=== PATIENT | female | born 1935 | race Asian ===

== ENCOUNTER 2018-01-27 11:10 | Inpatient (IN) | payer MEDICARE, MEDICAID ==
[~2018-01-27] VITALS: Ht 162.6 cm; Wt 42.6 kg
--- NOTE | 2018-01-27 11:20 | NUR ---
FERNANDO FROM [facility] DT DIFFICULTY URINATING. PATIENT IS AWAKE AND ALERT, APPEARS IN NO DISTRESS, RESPIRATION EVEN AND UNALBORED. SKIN IS WARM TO TOUCH, NOTED FEBRILE. PATIENT'VSS. MD SUAZO AT
[2018-01-27] MEDS ORDERED: VANCOMYCIN 1 GM in IV D5W 250 ML IV ONE (11:30)
[2018-01-27] MEDS ORDERED: IV NS 0.9% 500 ML BAG IV ONE (11:30)
[2018-01-27] MEDS ORDERED: MEROPENEM 1 G in IV NS 0.9% 100 ML IV ONE (11:30)
[2018-01-27] MEDS ORDERED: IV NS 0.9% 1,000 ML BAG IV ONE (11:30)
[2018-01-27 11:33] LABS: BASOPHILS # (AUTO) 0.4 /CMM (0.0-0.2); BASOPHILS % (AUTO) 3.1 % (0.0-2.0); HEMATOCRIT 34 % (33-45); LYMPHOCYTES # (AUTO) 1.3 /CMM (0.8-4.8); LYMPHOCYTES % (AUTO) 10.4 % (20.0-44.0); MEAN CORPUSCULAR HGB CONC 35 g/dl (31.0-36.0); MEAN CORPUSCULAR VOLUME 97 fL (82-100); MONOCYTES # (AUTO) 0.7 /CMM (0.1-1.30); MONOCYTES % (AUTO) 5.5 % (2.0-12.0); PLATELET COUNT (AUTO) 225 /CMM (150-450); RDW COEFFICIENT OF VARIATION 13.6 (11.5-15.0); WHITE BLOOD COUNT (AUTO) 12.4 K/uL (4.3-11.0)
--- NOTE | 2018-01-27 11:33 | NUR ---
CALLED NURSING SUP. FOR TELE BED
[2018-01-27 11:43] LABS: CALCIUM, SERUM 8.1 mg/dL (8.5-10.1); CARBON DIOXIDE 30 mmol/L (21-32); CHLORIDE 104 mmol/L (98-107); CREATININE 0.8 mg/dL (0.6-1.3); GLUCOSE 83 mg/dL (74-106); POTASSIUM 3.7 mmol/L (3.5-5.1); SODIUM SERUM 138 mmol/L (136-145); UREA NITROGEN, BLOOD 19 mg/dL (7-18)
[2018-01-27 11:47] LABS: INR 0.96 (0.85-1.15)
[2018-01-27 11:50] LABS: ALANINE AMINOTRANSFERASE 21 U/L (12-78); ALBUMIN 2.8 g/dL (3.4-5.0); ALKALINE PHOSPHATASE 82 U/L (46-116); ASPARTATE AMINOTRANSFERASE 21 U/L (15-37); BILIRUBIN,DIRECT 0.3 mg/dL (0.0-0.2); BILIRUBIN,TOTAL 1.1 mg/dL (0.2-1.0); TOTAL PROTEIN, SERUM 6.5 g/dL (6.4-8.2)
[2018-01-27 11:52] LABS: TROPONIN I < 0.017 ng/mL (0.00-0.056)
[2018-01-27 12:01] LABS: APPEARANCE,URINE Clear (CLEAR); BILIRUBIN,URINE Negative (NEGATIVE); BLOOD, URINE Large Ery/uL (NEGATIVE); COLOR,URINE Yellow (YELLOW); KETONES,URINE Negative (NEGATIVE); LEUKOCYTE ESTERASE ,URINE Trace (NEGATIVE); NITRITE, URINE Negative (NEGATIVE); PH,URINE 6.5 (5.0-8.0); PROTEIN,URINE Negative (NEGATIVE); UGLUCOSE Negative (NEGATIVE); UROBILINOGEN,URINE 0.2 EU/dL (0.2)
--- NOTE | 2018-01-27 12:05 | NUR ---
CALLED DR PEDROZA OFFICE AND A PAGE WAS SENT OUT TO HIM
[2018-01-27 12:13] LABS: BACTERIA,URINE Rare /HPF (None Seen); MUCUS,URINE Few /LPF (None Seen); RBC,URINE 21-50 /HPF (0-2); SQUAMOUS EPITHELIAL CELL,UR Few /HPF (None Seen)
[2018-01-27] MEDS ORDERED: APIX2.5T PO (12:25)
[2018-01-27] MEDS ORDERED: BISA10SU61 RC (12:25)
[2018-01-27] MEDS ORDERED: METO-357 PO (12:25)
[2018-01-27] MEDS ORDERED: SENN-167 PO (12:25)
[2018-01-27] MEDS ORDERED: DOCU250C14 PO (12:25)
[2018-01-27] MEDS ORDERED: MAG30ORA PO (12:25)
[2018-01-27] MEDS ORDERED: ACET325T53 PO (12:25)
[2018-01-27] MEDS ORDERED: AMIO200T4 PO (12:25)
[2018-01-27] MEDS ORDERED: NA P133E RC (12:25)
[2018-01-27] MEDS ORDERED: MAGN400O6 PO (12:25)
[2018-01-27] MEDS ORDERED: PSYL660P17 PO (12:25)
[2018-01-27] MEDS ORDERED: DONE5TAB7 PO (12:25)
[2018-01-27] MEDS ORDERED: AMLO2.5T2 PO (12:25)
[2018-01-27] MEDS ORDERED: NITR0.4T48 SL (12:25)
[2018-01-27] MEDS ORDERED: QUET25TA PO (12:25)
[2018-01-27] MEDS ORDERED: CHOL200026 PO (12:26)
--- NOTE | 2018-01-27 12:45 | NUR ---
MS 322-2, MAULIK.
--- NOTE | 2018-01-27 13:01 | NUR ---
PATIENT TRANSPORTED TO MS. S
[2018-01-27 14:00] VITALS: BP 125/67
--- NOTE | 2018-01-27 14:00 | NUR ---
PT. BROUGHT UP FROM ER,PULLING ON IV LINE,THRASHING ABOUT BED,SIDE RAILS UP.RN GOT ORDERS FOR RESTRAINTS AND PLAN TO GET ORDER FOR SITTER.PT.SPEAKS PERSIAN AND IN WITH SEPSIS.HOOKED UP TO TELE,RHYTHM SR RATE OF65.IV SITE WRAPPED WITH KERLIX.NOTED LRG. BRUISE LT. HIP WITH PLANS TO TAKE PHOTO,PT.REFUSING FURTHER SKIN CHECK AND PULLING ON NURSES ARM.
--- NOTE | 2018-01-27 15:30 | NUR ---
DR. BAUER IN WITH PLANS TO ENTER ORDERS IN COMPUTER.Kari ZURITA FOR PT.
[2018-01-27 16:00] VITALS: BP 124/69
[2018-01-27] MEDS ORDERED: MAG HYDROX/AL HYDROX/SIMETH 30 ML UDC PO PRN (18:00)
[2018-01-27] MEDS ORDERED: NITROGLYCERIN 0.4 MG/TAB BOTTLE SL PRN (18:00)
[2018-01-27] MEDS ORDERED: MAGNESIUM HYDROXIDE 30 ML UDC PO PRN (18:00)
[2018-01-27] MEDS ORDERED: BISACODYL SUPP (10 MG) 10 MG/SUPP.RECT SUPP.RECT RC PRN (18:00)
--- NOTE | 2018-01-27 18:30 | NUR ---
NO CHANGE IN STATUS.
--- NOTE | 2018-01-27 19:15 | NUR ---
TELE/PACKING INSPECTOR; RECEIVED PT'S RE[PORTS FROM THE DAY SHIFT RN FOR CONTINUITY OF CARE. AT THIS TIME PT IN BED AWAKE WITH EYES OPENED BUT NON VERBAL . BREATHING NON LABORED. WITH O2 4L NC ON. HOB AT 45 DEGREES. ON TELEMETRY. HL RFA INTACT WITH KERLIX ON. BED ON LOWER POSITION AND LOCKED FOR SAFETY. SIDE RAILS X 4 ARE UP FOR SAFETY. CALL LIGHT WITHIN REACH. WILL CONTINUE TO MONITOR. SITTER PRESENT FOR THE MARINE RESOURCE ECONOMIST.
[2018-01-27] MEDS: CEFTRIAXONE 1 G in IV D5W 50 ML IV SCH (19:50)
[2018-01-27 19:58] LABS: ALANINE AMINOTRANSFERASE 22 U/L (12-78); ALBUMIN 2.6 g/dL (3.4-5.0); ALKALINE PHOSPHATASE 74 U/L (46-116); ASPARTATE AMINOTRANSFERASE 18 U/L (15-37); BILIRUBIN,TOTAL 1.2 mg/dL (0.2-1.0); CALCIUM, SERUM 7.3 mg/dL (8.5-10.1); CARBON DIOXIDE 26 mmol/L (21-32); CHLORIDE 108 mmol/L (98-107); CREATININE 0.8 mg/dL (0.6-1.3); GLUCOSE 163 mg/dL (74-106); POTASSIUM 3.2 mmol/L (3.5-5.1); SODIUM SERUM 142 mmol/L (136-145); TOTAL PROTEIN, SERUM 5.8 g/dL (6.4-8.2); UREA NITROGEN, BLOOD 14 mg/dL (7-18)
[2018-01-27 20:00] VITALS: BP 121/65
--- NOTE | 2018-01-27 20:50 | NUR ---
TELE/MANAGER OF BUSINESS; CHARGE NURSE NIDIA WAS INFORMED OF THE CMP LABS. RESULTS DRAWN AT 1920, K IS 3.2 AND THE RESTS. SHE SAID CALL DR. Orlando BAUER.
--- NOTE | 2018-01-27 21:00 | NUR ---
TELE/TIME LOCK EXPERT; I PLACED A CALL TO DR. Orlando BAUER'S OFFICE TEL. # [phone] AND LADY ADULT EDUCATION MANAGER SAID FOR [facility] STENCIL TYPIST IS COVERED BY DR. RODRIGO COELLO. I WAS ABLE TO TALK TO HIM TRYING TO RELAY THE CMP LABS. RESULTS DRAWN AT 1920 AND HE SAID I HAVE NO PRIVILEGE IN [facility]. HE SAID FURTHER TO CALL THE ADULT EDUCATION MANAGER BACK WHO IS THE RIGHT DOCTOR STENCIL TYPIST . HE SAID FURTHER IT IS NOT YOUR FAULT.
--- NOTE | 2018-01-27 21:05 | NUR ---
TELE/CAMPAIGN ASSISTANT; I PLACED A CALL BACK TO DR. Orlando BAUER'S OFFICE # [phone] A LADY SECURITY ASSOCIATE ANSWERED SAID DR JEROD REINOSO WHOM IS REGISTERED DIET TECHNICIAN. AT THIS TIME I NOTIFIED DR. JEROD REINOSO AND READ TO HER THE CMP LABS RESULTS DRAWN AT 1920; I TOLD HER NA 142 , K 3.2 , CHLORIDE 108, ANION GAP 11, BUN 14, CREATININE0.8, GLUCOSE 163, CALCIUM7.3 TOTAL BILIRUBIN1.2, AST 18, ALT 22 ALKALINE PHOSPHATASE 74 , TOTAL PROTEIN 5.[address] JEROD REINOSO SAID EVERYTHING IS NORMAL TO ME. SO I INFORMED THE CHARGE NURSE THAT I NOTIFIED DR. JEROD REINOSO AND SAID EVERYTHING IS NORMAL TO HER.
--- NOTE | 2018-01-27 21:45 | NUR ---
TELE/COLLAR POINTER; NOTED PT INCONTINENT OF URINE MODERATE AMOUNT YELLOW COLOR.PT TRYING TO TALKED BUT I UNABLE TO UNDERSTAND . PERINEAL CARE DONE AND DIAPER CHANGED, REPOSITIONED TO LT SIDE WITH PILLOW SUPPORT TO HER BACK.
--- NOTE | 2018-01-27 21:55 | NUR ---
TELE/CINEMA OPERATOR; NOTED PT WITH FACIAL GRIMACES. TYLENOL 650 MG TABS. PO Q6 PRN GIVEN AT 21 59 CRUSHED WITH APPLE SAUCE PT ABLE TO TAKE IT WITH OUT PROBLEM. ASPIRATION PRECAUTION OBSERVED. WILL CONTINUE TO MONITOR,
[2018-01-27] MEDS: ACETAMINOPHEN 325 MG TABLET PO PRN (21:59)
[2018-01-27] MEDS: DONEPEZIL 5 MG TABLET PO SCH (22:06)
[2018-01-27] MEDS: SENNOSIDES 8.6 MG TABLET PO SCH (22:07)
[2018-01-28 01:20] VITALS: BP 123/69
--- NOTE | 2018-01-28 01:30 | NUR ---
TELE/ SLUBBER TENDER; NOTED PT IS INCONTINENT OF URINE YELLOW COLOR LARGE AMOUNT. PERINEAL CARE RENDERED. DIAPER CHANGED. PT TURNED AND REPOSITIONED TO HER LT SIDE WITH PILLOWS SUPPORT TO HER BACK AND LEGS. BOTH HEELS OFFLOADED. PT WENT BACK TO SLEEP AFTER. WILL CONTINUE TO MONITOR. SITTER PRESENT .
--- NOTE | 2018-01-28 03:00 | NUR ---
TELE/MEDICAL EQUIPMENT SALES; PT IN BED SLEEPING QUIETLY. BREATHING NON LABORED. CONTINUE TO MONITOR. SITTER PRESENT IN THE ROOM.
--- NOTE | 2018-01-28 04:00 | NUR ---
TELE/EMBEDDED SOFTWARE MANAGER; PT SLEEPING AT THIS TIME. BREATHING NON LABORED.
--- NOTE | 2018-01-28 04:45 | NUR ---
TELE/VISUAL MANAGER; PT WOKE UP SCREAMING TALKING IN [place]. NON ROMANIAN SPEAKING. UNABLE TO UNDERSTAND HER TALKING. AT THIS TIME PT IS INCONTINENT OF URINE MODERATE AMOUNT YELLOW COLOR. PT IS COMBATIVE. REYNALDO ANAL WASHED WITH SOAP AND WARM WATER, RINSE AND PAT DRY AND DIAPER CHANGED. REPOSITIONED TO HER RT SIDE WITH PILLOWS SUPPORT TO HER BACK AND LEGS.
--- NOTE | 2018-01-28 04:50 | NUR ---
TELE/BACON SKINNER; PT POINTING HER LT HAND TO HER PERINEAL AREA ? PAIN. SHE PULLED OUT HER O2 AND TELEMETRY BOX.
[2018-01-28] MEDS: ACETAMINOPHEN 325 MG TABLET PO PRN (04:53)
--- NOTE | 2018-01-28 04:55 | NUR ---
TELE/SENIOR PRODUCT ANALYST; TYLENOL 650 MG TABS. PO Q6 PRN CRUSHED AND MIXED WITH APPLE SAUCE PT ABLE TO TAKE IT WITHOUT PROBLEM. ASPIRATION PRECAUTION WAS OBSERVED.
--- NOTE | 2018-01-28 05:00 | NUR ---
TELE/HYDRO GENERATION SUPERVISOR; PT DID NOT HAVE BILATERAL SOFT WRIST RESTRAINT SINCE I RECEIVED LAST NIGHT PT WAS CALM , QUIET AND SLEEPING. AT THIS TIME I RESUMED IT ORDERED DUE TO PT VERY AGITATED , COMBATIVE AND REMOVING O2 CANNULA, TELEMETRY BOX AND TRYING TO PULL OUT THE IV LINE. ONCE PT CALM DOWN I WILL RELEASE IT.
--- NOTE | 2018-01-28 05:10 | NUR ---
TELE/REGISTERED ROUTE ASSOCIATE; PT BADLY REFUSED VITAL SIGNS TO BE TAKEN. PER HAND DRAWER IN HELPER PT ON SR 70. I INFORMED CHARGE NURSE REGARDING PT SCREAMING AGITATED AND COMBATIVE. I PLACED A CALL TO HER DAUGHTER -IN -[place] IN [place] # [phone] PHONE KEPT RINGING NO ANSWER. I LEFT MESSAGE TO RETURN MY CALL IN ORDER FOR HER TO TALK TO THE PT. AWAITING.
--- NOTE | 2018-01-28 05:45 | NUR ---
TELE/CHASER TAR; PT AT THIS TIME STILL AWAKE AND CALM AND QUIET. PT WHEEZING WHEN SHE WAS VERY AGITATED . O2 RE APPLIED.
--- NOTE | 2018-01-28 06:30 | NUR ---
TELE /CREDIT COMPLIANCE OFFICER; PT REFUSED MORNING BATH. APPEARED BIT CALM AND QUIET. WILL CONTINUE TO MONITOR.HL, O2 AND IV LINE INTACT. WILL CONTINUE TO MONITOR. SITTER PRESENT AT ALL TIMES. WILL ENDORSE TO THE DAY SHIFT NURSE.
--- NOTE | 2018-01-28 06:45 | NUR ---
TELE/CIGAR HEAD HOLER; PT AT THIS TIME CALM , QUIET AND SLEEPING. BILATERAL SOFT WRIST RESTRAINTS ARE REMOVED. O2 IV LINE AND TELEMETRY BOX IN PLACED. WILL CONTINUE TO MONITOR. WILL ENDORSE TO THE DAY SHIFT NURSE FOR CONTINUITY OF CARE.
--- NOTE | 2018-01-28 06:54 | NUR ---
TELE/TANKAGE GRINDER; PT HAS ALSO BRUISE ON HER LT ARM WHEN RECEIVED LAST NIGHT.
--- NOTE | 2018-01-28 07:10 | NUR ---
RN NOTES PT IS LAYING DOWN IN BED, RESTING COMFORTABLY. PT ON 4L O2, RESPIRATIONS ARE EVEN AND UNLABORED. IV ON RAC INTACT AND SL. SAFETY MEASURES ARE IN PLACE AND SITTER IS AT BEDSIDE. WILL CONTINUE TO MONITOR.
[2018-01-28 08:00] VITALS: BP 126/77
[2018-01-28] MEDS: AMLODIPINE BESYLATE 2.5 MG TABLET PO SCH (08:20)
[2018-01-28] MEDS: QUETIAPINE FUMARATE 25 MG TABLET PO SCH (08:20)
[2018-01-28] MEDS: METOPROLOL SUCCINATE 50 MG TAB.SR.24H PO SCH (08:20)
[2018-01-28] MEDS: AMIODARONE HCL 200 MG TABLET PO SCH (08:20)
[2018-01-28 08:40] LABS: BASOPHILS % (AUTO) 0.1 % (0.0-2.0); EOSINOPHILS % (AUTO) 0.5 % (0.0-6.0); HEMATOCRIT 34 % (33-45); HEMOGLOBIN 11.4 g/dL (11.5-14.8); LYMPHOCYTES # (AUTO) 1.2 /CMM (0.8-4.8); LYMPHOCYTES % (AUTO) 9.8 % (20.0-44.0); MEAN CORPUSCULAR HGB CONC 34 g/dl (31.0-36.0); MEAN CORPUSCULAR VOLUME 98 fL (82-100); MONOCYTES # (AUTO) 0.5 /CMM (0.1-1.30); MONOCYTES % (AUTO) 3.8 % (2.0-12.0); NEUTROPHILS # (AUTO) 10.4 /CMM (1.8-8.9); NEUTROPHILS % (AUTO) 85.8 % (43.0-81.0); PLATELET COUNT (AUTO) 224 /CMM (150-450); RDW COEFFICIENT OF VARIATION 13.5 (11.5-15.0); RED BLOOD CELL COUNT(AUTO) 3.42 MIL/uL (4.0-5.2); WHITE BLOOD COUNT (AUTO) 12.2 K/uL (4.3-11.0)
[2018-01-28] MEDS: APIXABAN 2.5 MG TABLET PO SCH ×2 (09:11→17:09)
--- NOTE | 2018-01-28 13:00 | NUR ---
RN NOTES PT IS VERY COMBATIVE AND YELLING. PT VOICES PARANOID THOUGHTS ABOUT STAFF TRYING TO KILL HER. PT TRIES TO GRAB AND HIT RN AND SITTER.
[2018-01-28 16:00] VITALS: BP 131/77
[2018-01-28] MEDS: CEFTRIAXONE 1 G in IV D5W 50 ML IV SCH (17:31)
[2018-01-28] MEDS ORDERED: ALBUTEROL FS 2.5 MG/0.5 ML VIAL.NEB NEB PRN (18:00)
--- NOTE | 2018-01-28 18:32 | NUR ---
RN NOTES PT IS LAYING DOWN IN BED, ALERT BUT CONFUSED, WITH SITTER AT BEDSIDE. PT ON RA, RESPIRATIONS ARE EVEN AND UNLABORED. IV ON LFA INTACT AND SL. ALL MEDS WERE GIVEN ORDERED AND PT NEEDS MET. PT KEPT CLEAN AND DRY, REPOSITIONED Q2HRS. NO SIGNS OF DISTRESS NOTED. SAFETY MEASURES ARE IN PLACE, CALL LIGHT IS IN REACH. WILL ENDORSE TO BUSINESS CONTROL MANAGER RN FOR CONTINUITY OF CARE.
--- NOTE | 2018-01-28 19:15 | NUR ---
MS/FISHER PURSE SEINE; RECEIVED PT'S REPORTS FROM THE DAY SHIFT RN FOR CONTINUITY OF CARE. AT THIS TIME PT IS IN BED AWAKE, ALERT AND VERBALLY RESPONSIVE IN LATVIAN SPEAKING. DAY SHIFT SITTER PRESENT. PT DENIES ANY PAIN WHEN ASKED BY THE DAY SHIFT LATVIAN SITTER . PT ON ROOM AIR. BREATHING NON LABORED. NO COUGHING NOR WHEEZING AT THIS TIME. HL ON RAC COVERED SLEEVE INTACT. PT ON DIAPER. BRUISE STILL OBSERVED ON RA AND LT HIP. BED ON LOWER POSITION AND LOCKED FOR SAFETY. SIDE RAILS X 4 ARE UP FOR SAFETY. NIGHT SITTER NOW PRESENT. WILL CONTINUE TO MONITOR.
[2018-01-28 20:35] VITALS: BP 143/80
[2018-01-28] MEDS: DONEPEZIL 5 MG TABLET PO SCH (21:49)
[2018-01-28] MEDS: SENNOSIDES 8.6 MG TABLET PO SCH (21:51)
--- NOTE | 2018-01-28 22:00 | NUR ---
MS/INTERNAL AFFAIRS INVESTIGATOR; NOTED PT IS INCONTINENT OF URINE LARGE AMOUNT YELLOW COLOR. PERINEAL /ANAL AREA WASHED WITH SOAP AND WARM WATER AND KEEP IT DRY. DIAPER CHANGED . TURNED AND REPOSITIONED HER RT SIDE WITH PILLOWS SUPPORT HER BACK AND LEGS. DUE PO MEDS. CRUSHED AN D MIXED WIT APPLE SAUCE ALL TAKEN AND DRUNK APPLE JUICE. ASPIRATION PRECAUTION OBSERVED. WILL CONTINUE TO MONITOR.
--- NOTE | 2018-01-28 22:55 | NUR ---
MS/CHIEF NURSE ANESTHETIST; WHEN I CHECKED THE LAB. RESULT I NOTED PT'S PROCALCITONIN RESULT IS 3.96 H . I INFORMED THE CHARGE NURSE.
--- NOTE | 2018-01-28 23:05 | NUR ---
MS/MACHINIST MECHANIC; PT SLEEPING AT THIS TIME. BREATHING NON LABORED.
--- NOTE | 2018-01-28 23:30 | NUR ---
MS/STERILE PROCESSING TECHNICIAN; PT WOKE UP TALKING I UNABLE TO UNDERSTAND. I REQUESTED SANJU CORONADO GERMAN SPEAKING TO TALK TO THE PT. SHE DID TALK TO THE PT , PT DENIES ANY PAIN. PT WANTS TO EAT SHE IS HUNGRY AND SAID SHE DID NOT EAT HER DINNER. PT ON PRECAUTION PRECAUTION OBSERVED. I GAVE PT VANILLA PUDDING AND SHE EAT HALF OF THE VANILLA PUDDING CUP. DRUNK SOME APPLE JUICE.
--- NOTE | 2018-01-28 23:50 | NUR ---
MS/BELT BUILDER HELPER; PT REPOSITIONED. NOTED SOME COUGHING AND WHEEZING. PT REFUSED O2 ON. I CALLED MAYDA GONZALEZ FOR PT'S BREATHING TREATMENTS ROUTINELY ORDERED. HE CAME CHECKED O2 SAT ON RA 91 %.
[2018-01-28] MEDS: ALBUTEROL FS 2.5 MG/0.5 ML VIAL.NEB NEB SCH (23:54)
--- NOTE | 2018-01-29 | NUR ---
MS/BORING MACHINE SET UP OPERATOR; RT GAVE BREATHING TREATMENT.
--- NOTE | 2018-01-29 00:15 | NUR ---
MS/CHIEF LIBRARIAN WORK WITH BLIND; BREATHING TREATMENT DONE. O2 SAT ON RA CHECKED BY RT 99 %. RT PUT BACK O2 ON 2L NC.
--- NOTE | 2018-01-29 01:15 | NUR ---
MS/GROCERY CLERK MARKING; PT STILL AWAKE AT THIS TIME CONFUSED AGITATED . REPOSITIONED. PT REFUSED TO TAKE TYLENOL FOR DISCOMFORT.
[2018-01-29] MEDS: ACETAMINOPHEN 325 MG TABLET PO PRN ×2 (01:18→12:29)
--- NOTE | 2018-01-29 01:45 | NUR ---
MS/ALLERGY AND IMMUNOLOGY SPECIALIST; NOTEDE PT IS INCONTINENT OF URINE MODERATE AMOUNT YELLOW COLOR. PERINEAL CARE DONE. DIAPER CHANGED. REPOSITIONED FOR COMFORT. WILL CONTINUE TO MONITOR.
--- NOTE | 2018-01-29 02:55 | NUR ---
MS/BISCUIT PACKER; CHARGE NURSE , NIDIA IN AND CHECKED THE PT. AT THIS TIME PT STILL SCREAMING , IN TAJIK WORDS. VERY CONFUSED AND SCRATCHING THE STAFF. REPOSITIONED.
[2018-01-29] MEDS: ALBUTEROL FS 2.5 MG/0.5 ML VIAL.NEB NEB SCH ×6 (03:29→23:19)
--- NOTE | 2018-01-29 03:30 | NUR ---
MS/VETERINARIAN LABORATORY ANIMAL CARE; RT CAME CHECKED PT'S O2 SAT ON RA 95 %. NO HHN GIVEN DUE TO PT AGITATED. PT WAS REPOSITIONED . REFUSED O2 .
--- NOTE | 2018-01-29 03:35 | NUR ---
MS/CONDUIT HELPER; I DID REQUEST IVONNE RN WHO SPEAKS CHINESE TO TALK TO THE PT WHAT PT WANTS. THE RN, SAID PT IS JUST VERY CONFUSED. CONTINUE TO MONITOR.
--- NOTE | 2018-01-29 04:00 | NUR ---
MS/BIOASSAYIST; PT REMOVED HER DIAPER AND GIVEN TO ME AND NOTED IT 'S OF URINE. PT ABLE TO ALLOW ME TO CHANGE HER DIAPER. REPOSITIONED.
--- NOTE | 2018-01-29 04:15 | NUR ---
MS/METAL ROOM DENTAL TECHNICIAN; NOTED AT THIS TIME PT CALM AND QUIET BUT AWAKE WITH EYES ARE OPENED.
--- NOTE | 2018-01-29 06:34 | NUR ---
MS/AIR CONDITIONER INSTALLER HELPER; PT SLEPT ONLY FOR SHORT INTERVALS. AWAKE, ALERT, VERY CONFUSED TRYING TO PUT HER LEGS ON TOP OF THE BED SIDE RAILS. PT REFUSED BED BATH. NOT USING O2 AT THIS TIME REFUSING. HL ON THE RAC INTACT. WILL CONTINUE TO MONITOR. SITTER PRESENT IN THE ROOM AT ALL TIMES. APPEARED QUIET AND CALM AT THIS TIME. WILL ENDORSE TO THE D AY SHIFT NURSE FOR CONTINUITY OF CARE.
--- NOTE | 2018-01-29 07:30 | NUR ---
RN MS NOTES PT IN BED, AWAKE, NO SIGN OF PAIN, NO FACIAL GRIMACING, RESPIRATIONS NORMAL, AZERI SPEAKING, SAFETY PRECAUTIONS OBSERVED, SITTER AT BEDSIDE, CALL LIGHT WITHIN REACH.
[2018-01-29] MEDS: APIXABAN 2.5 MG TABLET PO SCH ×2 (08:26→17:27)
[2018-01-29] MEDS: AMLODIPINE BESYLATE 2.5 MG TABLET PO SCH (08:27)
[2018-01-29] MEDS: AMIODARONE HCL 200 MG TABLET PO SCH (08:27)
[2018-01-29] MEDS: QUETIAPINE FUMARATE 25 MG TABLET PO SCH (08:27)
[2018-01-29] MEDS: METOPROLOL SUCCINATE 50 MG TAB.SR.24H PO SCH (08:28)
--- NOTE | 2018-01-29 11:00 | NUR ---
RN MS NOTES PT IN BED, AWAKE, NO SIGN OF PAIN OR DISCOMFORT, NO FACIAL GRIMACING OR MOANNG, NO GUARDING MOVEMENT NOTED, RESPIRATIONS NORMAL, PT TRYING TO PUT HER LEGS OVER THE BED RAILING, SITER AT BEDSIDE, REPOSITIONED FOR COMFORT, SAFETY PRECAUTIONS OBSERVED.
--- NOTE | 2018-01-29 13:00 | NUR ---
RN MS NOTES PT IN BED, AWAKE, NO SIGN OF PAIN OR DISCOMFORT, BREATHING PATTERN NORMAL, SITTER AT BEDSIDE, ASSISTED TO BATHROOM NEEDED, BREATHING TREATMENT GIVEN BY RT ORDERED, KEPT CLEAN AND DRY.
[2018-01-29 16:00] VITALS: BP 104/58
[2018-01-29] MEDS: CEFTRIAXONE 1 G in IV D5W 50 ML IV SCH (17:31)
--- NOTE | 2018-01-29 19:00 | NUR ---
RN MS NOTES PT IN BED, RESTING, EASY TO AROUSE, WITH CONFUSION, PM MEDS GIVEN ORDERED, ASSISTED WITH MEALS, SAFETY PRECAUTIONS OBSERVED, KEPT CLEAN AND DRY, TURNED AND REPOSITIONED Q2 HOURS, KEPT COMFORTABLE.
--- NOTE | 2018-01-29 19:25 | NUR ---
MS/RN NOTES RECEIVED PT. LYING IN BED. PT. IS AWAKE, ALERT AND ORIENTED TO SELF WITH PERIODS OF CONFUSION NOTED. BREATHING EVEN AND UNLABORED ON ROOM AIR. NO SOB, RESPIRATORY DISTRESS OR COMPLAINTS OF PAIN NOTED AT THIS TIME. PT. WITH LEFT ARM 22 GAUGE IV SALINE LOCK PRESENT, PATENT AND INTACT. BED LOCKED AND IN LOWEST POSITION, SIDE RAILS UP X3, BED ALARM ON. PT. WITH 1:1 SITTER PRESENT AT BEDSIDE. WILL CONTINUE TO MONITOR.
[2018-01-29 20:00] VITALS: BP 129/59
[2018-01-29] MEDS: SENNOSIDES 8.6 MG TABLET PO SCH (21:54)
[2018-01-29] MEDS: DONEPEZIL 5 MG TABLET PO SCH (21:54)
--- NOTE | 2018-01-30 02:15 | NUR ---
MS/RN NOTES GAVE REPORT AND ENDORSED PT. TO SANJU MILTON. PT. IS LYING IN BED RESTING. BREATHING EVEN AND UNLABORED ON ROOM AIR. NO SOB, RESPIRATORY DISTRESS OR COMPLAINTS OF PAIN NOTED AT THIS TIME. PT. WITH 1:1 SITTER PRESENT AT BEDSIDE.
[2018-01-30] MEDS: ALBUTEROL FS 2.5 MG/0.5 ML VIAL.NEB NEB SCH ×6 (02:52→22:53)
--- NOTE | 2018-01-30 07:10 | NUR ---
REPORT RECEIVED AT THE BEDSIDE. PATIENT IS RESTING COMFORTABLY IN BED. NO SOB OR DISTRESS NOTED AT THIS TIME. PATIENT DENIES PAIN. BED IN A LOW POSITION, SITTER IS AT THE BEDSIDE. WILL MONITOR.
--- NOTE | 2018-01-30 07:27 | NUR ---
MS RN NOTE PATIENT IS RESTING IN BED COMFORTABLY, NO ACUTE DISTRESS NOTED. SAFETY PRECAUTION OBSERVED. ENDORSED TO DAY SHIFT NURSE FOR VICENTE.
[2018-01-30 08:00] VITALS: BP 153/90
[2018-01-30] MEDS: POTASSIUM CHLORIDE 20 MEQ TAB.PRT.SR PO SCH (08:10)
[2018-01-30] MEDS: METOPROLOL SUCCINATE 50 MG TAB.SR.24H PO SCH (08:10)
[2018-01-30] MEDS: AMIODARONE HCL 200 MG TABLET PO SCH (08:10)
[2018-01-30] MEDS: APIXABAN 2.5 MG TABLET PO SCH ×2 (08:11→17:32)
[2018-01-30] MEDS: QUETIAPINE FUMARATE 25 MG TABLET PO SCH (08:11)
[2018-01-30] MEDS: AMLODIPINE BESYLATE 2.5 MG TABLET PO SCH (08:11)
[2018-01-30 16:00] VITALS: BP 142/82
[2018-01-30] MEDS: CEFTRIAXONE 1 G in IV D5W 50 ML IV SCH (17:32)
--- NOTE | 2018-01-30 19:10 | NUR ---
RN OPENING NOTES PT AWAKE AND RESTING IN BED. 1:1 SITTER AT BEDSIDE. PT IS CONFUSED AND UPPER SORBIAN SPEAKER. PT HAS A LEFT UPPER ARM IV, INTACT AND PATENT. NO FLUIDS AT THIS TIME. NO NEW ORDERS OR LABS ORDERED FOR TOMORROW. SAFETY PRECAUTIONS IN PLACE BED IN LOWEST LOCKED POSITION, X3 SIDE RAILS UP. CALL LIGHT WITHIN REACH. WILL CONTINUE TO MONITOR.
[2018-01-30 20:00] VITALS: BP 137/75
[2018-01-30] MEDS: SENNOSIDES 8.6 MG TABLET PO SCH (22:10)
[2018-01-30] MEDS: DONEPEZIL 5 MG TABLET PO SCH (22:10)
[2018-01-31] MEDS: ALBUTEROL FS 2.5 MG/0.5 ML VIAL.NEB NEB SCH ×6 (02:42→22:52)
--- NOTE | 2018-01-31 06:51 | NUR ---
RN CLOSING NOTES PT AWAKE AND RESTING IN BED. 1:1 SITTER AT BEDSIDE. PT IS CONFUSED AND URDU SPEAKER. PT HAS A LEFT UPPER ARM IV, INTACT AND PATENT. NO FLUIDS AT THIS TIME. NO NEW ORDERS OR LABS ORDERED FOR TODAY. SAFETY PRECAUTIONS IN PLACE BED IN LOWEST LOCKED POSITION, X3 SIDE RAILS UP. CALL LIGHT WITHIN REACH. WILL ENDORSE TO DAY SHIFT NURSE FOR CONTINUITY OF CARE.
--- NOTE | 2018-01-31 07:21 | NUR ---
RN OPENING NOTES RECEIVED PT. PT STABLE AND RESTING IN BED, SITTER AT BEDSIDE. NO S/S OF RESP DISTRESS OR SOB. A/OX1, PT IS CONFUSED. SAFETY MEASURES IN PLACE, CALL LIGHT WITHIN REACH. WILL CONTINUE TO MONITOR.
[2018-01-31] MEDS: POTASSIUM CHLORIDE 20 MEQ TAB.PRT.SR PO SCH (08:17)
[2018-01-31] MEDS: QUETIAPINE FUMARATE 25 MG TABLET PO SCH (08:17)
[2018-01-31] MEDS: APIXABAN 2.5 MG TABLET PO SCH ×2 (08:21→17:28)
[2018-01-31] MEDS: AMIODARONE HCL 200 MG TABLET PO SCH ×2 (09:00→12:16)
[2018-01-31] MEDS: AMLODIPINE BESYLATE 2.5 MG TABLET PO SCH ×2 (09:00→12:17)
[2018-01-31] MEDS: METOPROLOL SUCCINATE 50 MG TAB.SR.24H PO SCH (09:00)
--- NOTE | 2018-01-31 09:02 | NUR ---
RN NOTES PT REFUSING TO HAVE VITAL SIGNS TAKEN AND ALL AM MEDICATIONS. APPEARS TO BECOME MORE ANXIOUS ENCOURAGEMENT FOR COMPLIANCE IS PROVIDED. ANTI-HYPERTENSIVE MEDICATIONS HELD FOR NOW, WILL F/U WITH PT.
--- NOTE | 2018-01-31 10:44 | NUR ---
RN NOTES PT CONTINUES TO REFUSE MEDS AND VITAL SIGNS. PT APPEARS STABLE, BREATHING UNLABORED, DOES NOT APPEAR TO BE IN PAIN OR DISTRESS. WILL CONTINUE TO ENCOURAGE PT FOR COMPLIANCE AND CONTINUE TO MONITOR.
[2018-01-31] MEDS: ACETAMINOPHEN 325 MG TABLET PO PRN (14:41)
[2018-01-31] MEDS: CEFTRIAXONE 1 G in IV D5W 50 ML IV SCH (18:36)
--- NOTE | 2018-01-31 19:22 | NUR ---
PT IS REFUSING BREATHING TREATMENT AT THIS TIME. PT IS VERY AGITATED. RN NOTIFIED.
--- NOTE | 2018-01-31 19:29 | NUR ---
RN CLOSING NOTE PT IN BED RESTING. ALL PT NEEDS ANTICIPATED AND MET. SAFETY MEASURES IN PLACE. CALL LIGHT IN REACH. WILL ENDORSE TO STEAK SAUCE MAKER FOR VICENTE.
--- NOTE | 2018-01-31 19:30 | NUR ---
MS RN OPENING NOTES: RECEIVED PT IN BED AND IS AWAKE WITH ROCEPHIN IV RUNNING. PT CONFUSED AND IS ONLY BULGARIAN SPEAKING AND UNDERSTANDING ONLY. PT APPEARS TO BE AGITATED. CALL LIGHT WITHIN PT'S REACH. BED ALARM ACTIVATED. BED KEPT IN LOW, LOCKED POSITION, AND SIDE RAILS X 2UP. WILL CONTINUE TO MONITOR PT.
--- NOTE | 2018-01-31 19:43 | NUR ---
MS RN NOTES: PT REFUSING BREATHING TREATMENT. PT REFUSING TO HAVE HER VITALS TAKEN.
[2018-01-31 20:00] VITALS: BP 153/79
[2018-01-31 22:00] VITALS: BP 153/79
[2018-01-31] MEDS: DONEPEZIL 5 MG TABLET PO SCH (22:11)
[2018-01-31] MEDS: SENNOSIDES 8.6 MG TABLET PO SCH (22:11)
--- NOTE | 2018-01-31 22:15 | NUR ---
MS RN NOTES: ATTEMPTED TO GIVE SENOKOT AND ARICEPT TO PT. PT REFUSED AND MADE GESTURES THAT SHE WANTED TO BE LEFT ALONE. WAS ACCOMPANIED WITH BENGALI CABIN OUTFITTER AND PT SAID SHE DOES NOT WANT MEDS EVEN AFTER EXPLAINING WHAT IT WAS FOR.
[2018-02-01] MEDS: ALBUTEROL FS 2.5 MG/0.5 ML VIAL.NEB NEB SCH ×4 (02:34→15:30)
--- NOTE | 2018-02-01 06:42 | NUR ---
MS RN CLOSING NOTES: ALL NEEDS WERE ATTENDED AND ANTICIPATED FOR. PT ON ROOM AIR AT THIS TIME PT KEEPS REMOVING N/C. NO S/S OF DISTRESS NOTED AT THIS TIME. PT IS A/OX1 AND IS LUXEMBOURGISH SPEAKING ONLY. PT STILL CONFUSED. PT HAS L UPPER ARM #22G AND IS PATENT AND INTACT. PT CURRENTLY S/L. CALL LIGHT WITHIN PT'S REACH. BED KEPT IN LOW, LOCKED POSITION, AND SIDE RAILS X 3 UP. BED ALARM ACTIVATED. WILL ENDORSE TO AM NURSE FOR VICENTE.
--- NOTE | 2018-02-01 07:15 | NUR ---
MS/RN OPENING NOTE PATIENT IS RECEIVED IN BED AWAKE. ALERT AND ORIENTED TO SELF. PATIENT IS CONFUSED, FORGETFUL. REDIRECTION AND REORIENTATION PROVIDED. VERBAL CUES PROVIDED TO INCREASE SAFETY AWARENESS. PATIENT REMOVES NASAL CANNULA AND THE OXYGEN SATURATION IS AT FLUCTUATES 89-90% IN ROOM AIR. PATIENT IS ENCOURAGED TO KEEP THE NASAL CANNULA IN ORDER TO INCREASE OXYGEN SATURATION LEVEL, HOWEVER, THE PATIENT NON-COMPLIANT. PATIENT INCONTINENT. ABDOMEN SOFT AND NON-DISTENDED. NO BLADDER DISTENSION NOTED. LEFT UPPER ARM G 22 PATENT AND SALINE LOCKED. SIDE RAILS UP X3. BED LOW AND LOCKED. BED ALARM ON AND SITTER BY THE BEDSIDE. CALL LIGHT WITHIN REACH. WILL CONTINUE TO MONITOR.
[2018-02-01 08:00] VITALS: BP 144/81
[2018-02-01 08:32] VITALS: BP 144/81
[2018-02-01] MEDS: AMLODIPINE BESYLATE 2.5 MG TABLET PO SCH (08:32)
[2018-02-01] MEDS: METOPROLOL SUCCINATE 50 MG TAB.SR.24H PO SCH (08:32)
[2018-02-01] MEDS: POTASSIUM CHLORIDE 20 MEQ TAB.PRT.SR PO SCH (08:32)
[2018-02-01] MEDS: AMIODARONE HCL 200 MG TABLET PO SCH (08:32)
[2018-02-01] MEDS: QUETIAPINE FUMARATE 25 MG TABLET PO SCH (08:33)
[2018-02-01] MEDS: APIXABAN 2.5 MG TABLET PO SCH (10:04)
--- NOTE | 2018-02-01 10:05 | NUR ---
MS/RN NOTE ELIQUIS WAS ADMINISTERED LATE DUE TO PHARM DELIVERED IT LATE DESPITE FOLLOW UP CALL X2 WERE MADE.
[2018-02-01] MEDS: ACETAMINOPHEN 325 MG TABLET PO PRN (10:14)
--- NOTE | 2018-02-01 10:14 | NUR ---
MS/RN NOTE PATIENT WITH GENERALIZED BODY PAIN 11/28. TYLENOL 650 MG PO GIVEN PER ORDER.
--- NOTE | 2018-02-01 11:15 | NUR ---
MS/RN NOTE PATIENT IS ASSESSED AND NOTED PAIN LEVEL 0/10. PATIENT IN NO APPARENT DISTRESS.
--- NOTE | 2018-02-01 17:36 | NUR ---
MS/RN CLOSING NOTE PATIENET ALERT AND ORIENTED X1. DENIES SOB. RESPIRATION REGULAR AND UNLABORED. DENIES PAIN. DISCHARGE INSTRUCTIONS PROVIDED. REPORT GIVEN TO RECEIVING NURSE CRUZITO. DISHCRAGE PAPERS SENT WITH THE PATIENT TO THE FACILITY. PATIENT LEFT THE HOSPITAL IN STABLE CONDITION VIA ARRANGED AMBULANCE.
== END 2018-02-01 17:37 | DRG 871 ==
LOC: EDBD → ER 11:15 → MED 12:57 → TELE 21:34 → MED 01-28 08:30
PROVIDERS: ADMIT Internal Medicine; ATTEND Internal Medicine
DX: A41.9 Sepsis, unspecified organism (principal); J18.9 Pneumonia, unspecified organism; G93.40 Encephalopathy, unspecified; I48.0 Paroxysmal atrial fibrillation; R64 Cachexia; G30.9 Alzheimer's disease, unspecified; D63.8 Anemia in other chronic diseases classified elsewhere; F02.80 Dementia in other diseases classified elsewhere, unspecified severity, without behavioral disturbance, psychotic disturbance, mood disturbance, and anxiety; N39.0 Urinary tract infection, site not specified; J40 Bronchitis, not specified as acute or chronic; I10 Essential (primary) hypertension; Z79.899 Other long term (current) drug therapy; Z79.01 Long term (current) use of anticoagulants; E67.3 Hypervitaminosis D; Z91.81 History of falling; Y95 Nosocomial condition; Z66 Do not resuscitate; R73.9 Hyperglycemia, unspecified; F43.9 Reaction to severe stress, unspecified
CPT/HCPCS: 36415; 71045-TC; 80048-TC; 80053-TC; 80076-TC; 81000-TC; 83605-TC; 84484-TC; 85025-TC; 85730-TC; 87040-TC; 87081-TC; 87086-TC; 92611-TC; 94799-TC; 97116-TC; 97530-TC; A4216; A4606; J0696; J2185; J3370; J7030; J7040; J7060; Z7610

== ENCOUNTER 2018-02-16 18:25 | Inpatient (IN) | payer MEDICARE, MEDICAID ==
[~2018-02-16] VITALS: Ht 157.5 cm; Wt 36.1 kg
[~2018-02-16 18:25] MED LIST: ACET325T53 PO; AMIO200T4 PO; AMLO2.5T2 PO; APIX2.5T PO; BISA10SU61 RC; CHOL200026 PO; DOCU250C14 PO; DONE5TAB7 PO; MAG30ORA PO; MAGN400O6 PO; METO-357 PO; NA P133E RC; NITR0.4T48 SL; PSYL660P17 PO; QUET25TA PO; SENN-167 PO
--- NOTE | 2018-02-16 20:00 | NUR ---
82 YO FEMALE BB AMBULANCE FROM SNF. PATIENT DS TO ER BED, SKINW ARM AND DRY, RESP EVEN AND UNLABORED. PATIENT GOWNED, PLACED ON ENTERPRISE SOFTWARE DEVELOPER. AWAITING ORDERS FROM PROVIDER
--- NOTE | 2018-02-16 20:38 | NUR ---
20G LEFT AC IV STARTED, BLOOD SAMPLE OBTAINED AND SENT TO LAB
[2018-02-16 20:49] LABS: BASOPHILS # (AUTO) 0.1 /CMM (0.0-0.2); BASOPHILS % (AUTO) 1.1 % (0.0-2.0); EOSINOPHILS % (AUTO) 0.2 % (0.0-6.0); HEMATOCRIT 29 % (33-45); HEMOGLOBIN 10.1 g/dL (11.5-14.8); LYMPHOCYTES # (AUTO) 1.3 /CMM (0.8-4.8); LYMPHOCYTES % (AUTO) 14.1 % (20.0-44.0); MEAN CORPUSCULAR HGB CONC 35 g/dl (31.0-36.0); MEAN CORPUSCULAR VOLUME 98 fL (82-100); MONOCYTES # (AUTO) 0.6 /CMM (0.1-1.30); MONOCYTES % (AUTO) 6.5 % (2.0-12.0); NEUTROPHILS # (AUTO) 7.3 /CMM (1.8-8.9); NEUTROPHILS % (AUTO) 78.1 % (43.0-81.0); PLATELET COUNT (AUTO) 233 /CMM (150-450); RDW COEFFICIENT OF VARIATION 13.4 (11.5-15.0); WHITE BLOOD COUNT (AUTO) 9.3 K/uL (4.3-11.0)
--- NOTE | 2018-02-16 20:49 | NUR ---
IN AND OUT WHARTON CATH DONE, URINE SAMPLE OBTAINED AND SNT TO LAB
[2018-02-16 20:56] LABS: INR 1.05 (0.85-1.15)
[2018-02-16 21:00] LABS: ALANINE AMINOTRANSFERASE 19 U/L (12-78); ALBUMIN 2.1 g/dL (3.4-5.0); ALKALINE PHOSPHATASE 75 U/L (46-116); ASPARTATE AMINOTRANSFERASE 18 U/L (15-37); BILIRUBIN,DIRECT 0.5 mg/dL (0.0-0.2); BILIRUBIN,TOTAL 1.5 mg/dL (0.2-1.0); CALCIUM, SERUM 7.9 mg/dL (8.5-10.1); CARBON DIOXIDE 31 mmol/L (21-32); CHLORIDE 107 mmol/L (98-107); GLUCOSE 94 mg/dL (74-106); POTASSIUM 3.7 mmol/L (3.5-5.1); SODIUM SERUM 143 mmol/L (136-145); TOTAL PROTEIN, SERUM 6.3 g/dL (6.4-8.2); UREA NITROGEN, BLOOD 21 mg/dL (7-18)
[2018-02-16 21:02] LABS: TROPONIN I < 0.017 ng/mL (0.00-0.056)
[2018-02-16 21:17] LABS: APPEARANCE,URINE Clear (CLEAR); BILIRUBIN,URINE SMALL (NEGATIVE); BLOOD, URINE Moderate Ery/uL (NEGATIVE); COLOR,URINE Yellow (YELLOW); KETONES,URINE Negative (NEGATIVE); LEUKOCYTE ESTERASE ,URINE Negative (NEGATIVE); NITRITE, URINE Negative (NEGATIVE); PH,URINE 5.5 (5.0-8.0); PROTEIN,URINE 30 mg/dl (NEGATIVE); UGLUCOSE Negative (NEGATIVE)
[2018-02-16 21:20] LABS: BACTERIA,URINE Rare /HPF (None Seen); RBC,URINE 21-50 /HPF (0-2); SQUAMOUS EPITHELIAL CELL,UR Few /HPF (None Seen); WBC,URINE 0-2 /HPF (0-3)
[2018-02-16] MEDS ORDERED: PIPERACILLIN /TAZOBACTAM 3.375 G VIAL IV ONE (21:26)
[2018-02-16] MEDS ORDERED: VANCOMYCIN 1 GM VIAL ONE (21:26)
[2018-02-16] MEDS ORDERED: VANCOMYCIN 1 GM in IV D5W 250 ML IV ONE (21:30)
[2018-02-16] MEDS ORDERED: CEFEPIME 1 GM in IV D5W 50 ML IV ONE (21:30)
[2018-02-16] MEDS ORDERED: IV NS 0.9% 1,000 ML BAG IV ONE (21:30)
--- NOTE | 2018-02-16 22:30 | NUR ---
PATIENT WAS BROUGHT TO THE UNITE ON A GURNEY. ALERT CONFUSED AND DISORIENTED. MAORI SPEAKING ONLY. PATIENT IS ON 2L O2 VIA NC. RESPIRATIONS EVEN AND UNLABORED. IN NO APPARENT DISTRESS OR DISCOMFORT AT THIS TIME. COUGH PRESENT WITH GREENISH YELLOW THICK PHLEGM COMING OUT. PATIENT WAS TRANSFERRED TO BED SAFELY. MADE COMFORTABLE. VITAL SIGNS TAKEN AND RECORDED. BP: 114/64, HR: 71, RR: 20, O2SAT: 95%. TEMP: 97.5. RIGHT FOREARM 22G IVC, SALINE LOCK AT THIS MOMENT. NO OTHER BELONGINGS WAS PRESENT EXCEPT FOR THE GOWN SHE WAS WEARING FROM THE FACILITY SHE CAME FROM. PATIENT IS INCONTINENT, WITH DIAPER. SKIN IS INTACT. SMALL BRUISED AREA ON THE LEFT SIDE OF THE HEAD, AND BRUISING ON THE RIGHT THUMB. PATIENT IS ON BEDREST, ADMITTED TO TELEMETRY FLOOR. WILL OBTAIN ORDERS FROM DR. BAUER, CARRY OUT ORDERS AND CONTINUE TO MONITOR.
--- NOTE | 2018-02-16 22:45 | NUR ---
TRANSPORTED PT TO TELE BED WITHOUT INCIDENT
[2018-02-16 23:00] VITALS: BP 114/64
[2018-02-16] MEDS ORDERED: ALBUTEROL FS 2.5 MG/0.5 ML VIAL.NEB NEB PRN (23:30)
[2018-02-17] VITALS: BP 102/49
[2018-02-17] MEDS ORDERED: CEFTRIAXONE 1 G VIAL ONE
[2018-02-17] MEDS: IV NS 0.9% 1,000 ML IV SCH ×2 (00:01→20:09)
[2018-02-17] MEDS: CEFTRIAXONE 1 G in IV D5W 50 ML IV SCH ×2 (00:08→22:52)
--- NOTE | 2018-02-17 00:30 | NUR ---
PATIENT PULLED OUT HER IV LINE. TIP IS INTACT. NEW IV LINE PLACED ON THE LEFT LATERAL UPPER ARM.
[2018-02-17 04:00] VITALS: BP 139/78
[2018-02-17 06:52] LABS: EOSINOPHILS % (AUTO) 0.1 % (0.0-6.0); HEMATOCRIT 29 % (33-45); HEMOGLOBIN 10.3 g/dL (11.5-14.8); LYMPHOCYTES # (AUTO) 0.6 /CMM (0.8-4.8); LYMPHOCYTES % (AUTO) 5.2 % (20.0-44.0); MEAN CORPUSCULAR HGB CONC 35 g/dl (31.0-36.0); MEAN CORPUSCULAR VOLUME 105 fL (82-100); MONOCYTES # (AUTO) 0.5 /CMM (0.1-1.30); MONOCYTES % (AUTO) 4.9 % (2.0-12.0); NEUTROPHILS # (AUTO) 9.7 /CMM (1.8-8.9); NEUTROPHILS % (AUTO) 89.8 % (43.0-81.0); PLATELET COUNT (AUTO) 238 /CMM (150-450); RDW COEFFICIENT OF VARIATION 14.4 (11.5-15.0); RED BLOOD CELL COUNT(AUTO) 2.76 MIL/uL (4.0-5.2); WHITE BLOOD COUNT (AUTO) 10.8 K/uL (4.3-11.0)
--- NOTE | 2018-02-17 07:15 | NUR ---
RN OPENING TELE/NOTE 1:1 SITTER AT BEDSIDE. RECEIVED PT. IN BED AWAKE, AND CONFUSED. PT. ON TELE MONITOR READING SINUS RHYTHM 90 BPM. NO S/S OF SOB, BREATHING IS UNLABORED, AND EVEN ON OXYGEN AT 3L/MIN VIA NASAL CANNULA. NO S/S OF ACUTE DISTRESS. IV FLUIDS RUNNING AT 50 ML/HR. BED IS IN LOWEST, AND LOCKED POSITION. 2 SIDE RAILS UP, AND INSTRUCTED PT. TO USE CALL LIGHT FOR ASSISTANCE. ALL NEEDS MET. WILL ENDORSE REPORT TO NURSE.
[2018-02-17 07:16] LABS: THYROID STIMULATING HORMONE 0.973 uIU/mL (0.358-3.74)
--- NOTE | 2018-02-17 07:20 | NUR ---
DRAG DOWN CLOSING NOTES PATIENT IN BED, RESTING COMFORTABLY. SLEEPING, EASILY AROUSED WITH VERBAL AND TACTILE STIMULI, ORIENTED X0. PATIENT IS CONFUSED AND COMBATIVE. SITTER OBSERVED AT BEDSIDE. ON 3L O2 VIA NC. TOLERATING WELL. IN NO APPARENT DISTRESS OR DISCOMFORT AT THIS TIME. RESPIRATIONS EVEN AND UNLABORED. PATIENT WITH LEFT LATERAL UPPER ARM IV SITE 22G. FLUIDS RUNNING AT 50ML/HR. PATIENT WITH TELE MONITORING, SR AT 90BPM. PATIENT KEPT CLEAN AND COMFORTABLE, SAFETY MEASURES IN PLACE, BED IN LOW LOCKED POSITION, SIDE RAILS UPX2, CALL LIGHT WITHIN EASY REACH WILL CONTINUE TO MONITOR.
[2018-02-17 07:35] LABS: CALCIUM, SERUM 7.6 mg/dL (8.5-10.1); CARBON DIOXIDE 26 mmol/L (21-32); CHLORIDE 107 mmol/L (98-107); CREATININE 0.7 mg/dL (0.6-1.3); GLUCOSE 71 mg/dL (74-106); POTASSIUM 3.5 mmol/L (3.5-5.1); SODIUM SERUM 145 mmol/L (136-145); UREA NITROGEN, BLOOD 18 mg/dL (7-18)
[2018-02-17 08:00] VITALS: BP 121/70
[2018-02-17] MEDS ORDERED: BISACODYL SUPP (10 MG) 10 MG/SUPP.RECT SUPP.RECT RC PRN (08:30)
[2018-02-17] MEDS ORDERED: NA PHOS,M-B/NA PHOS,DI-BA 1 EA ENEMA RC PRN (08:30)
[2018-02-17] MEDS ORDERED: MAG HYDROX/AL HYDROX/SIMETH 30 ML UDC PO PRN (08:30)
[2018-02-17] MEDS ORDERED: NITROGLYCERIN 0.4 MG/TAB BOTTLE SL PRN (08:30)
[2018-02-17] MEDS ORDERED: MAGNESIUM HYDROXIDE 30 ML UDC PO PRN (08:30)
[2018-02-17] MEDS: CHOLECALCIFEROL 1,000 UNIT TABLET (VIT D3) PO SCH (10:45)
[2018-02-17] MEDS: AMLODIPINE BESYLATE 2.5 MG TABLET PO SCH (10:45)
[2018-02-17] MEDS: AMIODARONE HCL 200 MG TABLET PO SCH (10:46)
[2018-02-17] MEDS: METOPROLOL SUCCINATE 50 MG TAB.SR.24H PO SCH (10:46)
[2018-02-17] MEDS: QUETIAPINE FUMARATE 25 MG TABLET PO SCH (10:46)
[2018-02-17] MEDS: APIXABAN 2.5 MG TABLET PO SCH ×3 (10:49→17:46)
[2018-02-17 16:00] VITALS: BP 157/100
[2018-02-17] MEDS: ACETAMINOPHEN 325 MG TABLET PO PRN ×2 (16:55→17:46)
--- NOTE | 2018-02-17 17:01 | NUR ---
Pt with history of advanced dementia. Pt is a resident at [facility] [phone]. pt is on a bed hold and SNF will be able to accept pt back. Current plan is DC back to [facility] once medically cleared. Addendum: 02/17/18 at 1702 by MORRO DAWN RN Amended: Links added.
--- NOTE | 2018-02-17 19:14 | NUR ---
MS RN NOTES RECEIVE PT IN BED A/O X 0 CONFUSED AND COMBATIVE, 1:1 SITTER. NO S/S OF DISTRESS, SAFETY MEASURES IN PLACE, CALL LIGHT WITHIN REACH, WILL CONTINUE TO MONITOR
--- NOTE | 2018-02-17 19:46 | NUR ---
RN CLOSING NOTE 1:1 SITTER AT BEDSIDE. PT. IS IN BED AWAKE, AND CONFUSED. DR. BAUER WAS INFORMED PT.'S LUNG SOUNDS WERE COURSE, AND PT. HAD A WET COUGH. NEW ORDERS FOR A BNP AND ECHO WAS GIVEN, AND COMPLETED TODAY. NO S/S OF SOB, BREATHING IS UNLABORED, AND EVEN ON OXYGEN AT 4L/MIN VIA NASAL CANNULA. NO S/S OF ACUTE DISTRESS. IV FLUIDS RUNNING AT 50 ML/HR. NEW IV IS ON THE RIGHT UPPER ARM GAUGE 24. BED IS IN LOWEST, AND LOCKED POSITION. 2 SIDE RAILS UP, AND CALL LIGHT IS WITHIN REACH. ALL NEEDS MET. WILL ENDORSE REPORT TO NURSE.
[2018-02-17 20:00] VITALS: BP 111/62
[2018-02-17 20:30] VITALS: BP 111/62
[2018-02-17] MEDS: SENNOSIDES 8.6 MG TABLET PO SCH (21:06)
[2018-02-17] MEDS: DONEPEZIL 5 MG TABLET PO SCH (21:06)
--- NOTE | 2018-02-18 06:18 | NUR ---
MS RN NOTES PT IN BED ASLEEP AND EASILY AWAKEN, A/O X 0 CONFUSED, TAJIK SPEAKING 1:1 SITTER AT BEDSIDE. NOT IN DISTRESS, AM CARE PROVIDED. ON 3LPM VIA ND 02 SAT 98% STABLE CONDITION. NO ACUTE CHANGES THROUGHOUT THE SHIFT. KEPT CLEAN AND DRY AND COMFORT. NURSING CARE RENDERED. NEEDS ATTENDED AND ANTICIPATED. REPOSITION EVERY 2 HOURS FOR COMFORT. GOOD SKIN CARE PROVIDED. ON LOW BED TO ENSURE SAFETY, CALL LIGHT WITHIN REACH, WILL ENDORSE TO THE NEXT SHIFT CONTINUE PLAN OF CARE
--- NOTE | 2018-02-18 07:41 | NUR ---
MS RN NOTES PATIENT RECEIVED RESTING INSIDE ROOM. AWAKE, ALERT, VERBALLY RESPONSIVE AND RESPONDS TO VERBAL AND TACTILE STIMULI. NO SOB OR DISTRESS NOTED AT THIS TIME. DENIES ANY PAIN OR DISCOMFORT, NO FACIAL GRIMACE NOTED AT THIS TIME. SITTER AT BEDSIDE. WILL CONTINUE TO MONITOR. BED LOCKED AND IN LOW POSITION. BILATERAL UPPER SIDE RAILS UP AND LOCKED. CALL LIGHT WITHIN EASY REACH
[2018-02-18] MEDS: QUETIAPINE FUMARATE 25 MG TABLET PO SCH (08:30)
[2018-02-18] MEDS: APIXABAN 2.5 MG TABLET PO SCH ×2 (08:30→16:22)
[2018-02-18] MEDS: AMLODIPINE BESYLATE 2.5 MG TABLET PO SCH (08:31)
[2018-02-18] MEDS: CHOLECALCIFEROL 1,000 UNIT TABLET (VIT D3) PO SCH (08:31)
[2018-02-18] MEDS: METOPROLOL SUCCINATE 50 MG TAB.SR.24H PO SCH (08:31)
[2018-02-18] MEDS: AMIODARONE HCL 200 MG TABLET PO SCH (08:36)
[2018-02-18] MEDS: ACETAMINOPHEN 325 MG TABLET PO PRN (10:28)
[2018-02-18 16:00] VITALS: BP 135/83
[2018-02-18] MEDS: IV NS 0.9% 1,000 ML IV SCH (16:22)
[2018-02-18] MEDS ORDERED: DEXTROSE 50%-WATER 50 ML DISP.SYRIN IV PRN (17:00)
--- NOTE | 2018-02-18 17:01 | NUR ---
MS RN NOTES PATIENT SEEN AND EXAMINED BY DR. BAUER. WITH NEW ORDER TO DC IV FLUIDS. ALSO WITH ORDERS TO START SOLU MEDROL 40MG IV Q8, FSBS ACCUCHECK ACHS WITH MILD SLIDING SCALE WITH HUMALOG OR NOVOLOG INSULIN, LASIX 20MG IV QD X 3 DOSES. ORDERS NOTED AND CARRIED OUT. PHARMACY MADE AWARE.
[2018-02-18] MEDS: BLOOD SUGAR DIAGNOSTIC 1 EACH STRIP IN SCH ×2 (17:33→21:01)
--- NOTE | 2018-02-18 18:55 | NUR ---
MS RN NOTES PATIENT AWAKE, ALERT, VERBALLY RESPONSIVE AND RESPONDS TO VERBAL AND TACTILE STIMULI. NOTED PATIENT WITH WHEEZING, NO SOB OR ACUTE DISTRESS NOTED AT THIS TIME. PATIENT AFEBRILE, SKIN DRY AND WARM TO TOUCH. NO CHANGES IN LOC NOTED AT THIS TIME. SITTER REMAINS AT BEDSIDE. IV INTACT AND PATENT. WILL ENDORSE TO INCOMING SHIFT FOR VICENTE. BED LOCKED AND IN LOW POSITION. BILATERAL UPPER SIDE RAILS UP AND LOCKED. CALL LIGHT WITHIN EASY REACH
--- NOTE | 2018-02-18 19:15 | NUR ---
RN OPENING NOTES PT AWAKE AND RESTING IN BED. PT IS CONFUSED. IRISH SPEAKER. 1:1 SITTER AT BEDSIDE. PT HAS A STEPAN IV #22, INTACT AND PATENT. SAFETY PRECAUTIONS IN PLACE. BED IN LOWEST LOCKED POSITION, X2 SIDE RAILS UP, CALL LIGHT WITHIN REACH. WILL CONTINUE TO MONITOR.
[2018-02-18 20:00] VITALS: BP 128/67
[2018-02-18] MEDS: SENNOSIDES 8.6 MG TABLET PO SCH (21:00)
[2018-02-18] MEDS: methylPREDNISolone SOD SUCC 40 MG/ML VIAL IV SCH (21:00)
[2018-02-18] MEDS: DONEPEZIL 5 MG TABLET PO SCH (21:01)
[2018-02-18] MEDS: CEFTRIAXONE 1 G in IV D5W 50 ML IV SCH (23:47)
[2018-02-19] MEDS: BLOOD SUGAR DIAGNOSTIC 1 EACH STRIP IN SCH ×4 (06:01→21:21)
[2018-02-19] MEDS: methylPREDNISolone SOD SUCC 40 MG/ML VIAL IV SCH ×3 (06:01→21:21)
--- NOTE | 2018-02-19 06:51 | NUR ---
RN CLOSING NOTES PT AWAKE AND RESTING IN BED. PT IS CONFUSED. WOLOF SPEAKER. 1:1 SITTER AT BEDSIDE. PT HAS A STEPAN IV #22, INTACT AND PATENT. NO S/S OF PAIN OR DISTRESS. ALL PT NEEDS MET. SAFETY PRECAUTIONS IN PLACE. BED IN LOWEST LOCKED POSITION, X2 SIDE RAILS UP, CALL LIGHT WITHIN REACH. WILL ENDORSE TO DAY SHIFT NURSE FOR CONTINUITY OF CARE.
[2018-02-19 08:00] VITALS: BP 135/81
--- NOTE | 2018-02-19 08:00 | NUR ---
RN NOTES PATIENT IN BED SLEEPING. NO SOB OR ACUTE DISTRESS NOTED. PATIENT WITH SITTER AT BEDSIDE. DENIES ANY PAIR OR DISCOMFORT. BED IN LOW LOCKED POSITION. CALL LIGHT WITHIN REACH. WILL CONTINUE TO MONITOR.
[2018-02-19] MEDS: CHOLECALCIFEROL 1,000 UNIT TABLET (VIT D3) PO SCH (08:14)
[2018-02-19] MEDS: AMIODARONE HCL 200 MG TABLET PO SCH (08:14)
[2018-02-19] MEDS: FUROSEMIDE 20 MG/2 ML VIAL IV SCH (08:15)
[2018-02-19] MEDS: METOPROLOL SUCCINATE 50 MG TAB.SR.24H PO SCH (08:15)
[2018-02-19] MEDS: QUETIAPINE FUMARATE 25 MG TABLET PO SCH (08:15)
[2018-02-19] MEDS: AMLODIPINE BESYLATE 2.5 MG TABLET PO SCH (08:15)
[2018-02-19] MEDS: APIXABAN 2.5 MG TABLET PO SCH ×2 (08:16→16:40)
[2018-02-19] MEDS: INSULIN ASPART/LISPRO 100 UNIT/ML CARTRIDGE SQ PRN ×2 (12:20→21:43)
--- NOTE | 2018-02-19 12:30 | NUR ---
MS RN NOTES PATIENT SEEN AND EVALUATED BY DR. BAUER ORDERS NOTED AND CARRIED OUT.
[2018-02-19 16:04] VITALS: BP 108/63
--- NOTE | 2018-02-19 19:00 | NUR ---
RN OPENING NOTES PT AWAKE AND RESTING IN BED. PT IS CONFUSED. UPPER SORBIAN SPEAKER. 1:1 SITTER AT BEDSIDE. PT HAS A STEPAN IV #22, INTACT AND PATENT. NO S/S OF PAIN, SOB, OR DISTRESS. SAFETY PRECAUTIONS IN PLACE. BED IN LOWEST LOCKED POSITION, X3 SIDE RAILS UP, CALL LIGHT WITHIN REACH. WILL CONTINUE TO MONITOR.
--- NOTE | 2018-02-19 19:24 | NUR ---
MS RN NOTES PATIENT IN BED RESTING NO SOB OR ACUTE DISTRESS NOTED. PATIENT WITH SITTER AT BEDSIDE FOR SAFETY. ALL DUE MEDICATIONS ADMINISTERED. PERIPHERAL IV INTACT PATIENT. ALL NEEDS MET. WILL ENDORSE TO PM SHIFT VICENTE.
[2018-02-19 20:00] VITALS: BP 110/62
[2018-02-19] MEDS: MIRTAZAPINE 15 MG TABLET PO SCH (22:00)
[2018-02-19] MEDS: DONEPEZIL 5 MG TABLET PO SCH (22:00)
[2018-02-19] MEDS: SENNOSIDES 8.6 MG TABLET PO SCH (22:00)
--- NOTE | 2018-02-19 22:11 | NUR ---
RN NOTES PT REFUSED ARICEPT, REMERON, AND SENOKOT. AFTER CRUSHING MEDICATIONS AND MULTIPLE ATTEMPTS AT ADMINISTRATION, PT SPIT ALL MEDICATIONS OUT. PT IS VERY CONFUSED. PT WELSH SPEAKER AND ALL COMMUNICATION WAS TRANSLATED THROUGH SANJU MILTON.
[2018-02-19] MEDS: CEFTRIAXONE 1 G in IV D5W 50 ML IV SCH (23:13)
[2018-02-20] MEDS: methylPREDNISolone SOD SUCC 40 MG/ML VIAL IV SCH ×2 (05:27→12:36)
--- NOTE | 2018-02-20 06:36 | NUR ---
RN CLOSING NOTES PT AWAKE AND RESTING IN BED. PT IS CONFUSED. ROMANSH SPEAKER. 1:1 SITTER AT BEDSIDE. PT HAS A LEFT AC IV #24, INTACT AND PATENT. NO S/S OF PAIN, SOB, OR DISTRESS. PT REFUSED ALL PO MEDICATIONS. ALL NEEDS MET. SAFETY PRECAUTIONS IN PLACE. BED IN LOWEST LOCKED POSITION, X3 SIDE RAILS UP, CALL LIGHT WITHIN REACH. WILL ENDORSE TO DAY SHIFT FOR CONTINUITY OF CARE.
[2018-02-20 06:59] LABS: CALCIUM, SERUM 8.2 mg/dL (8.5-10.1); CARBON DIOXIDE 32 mmol/L (21-32); CHLORIDE 104 mmol/L (98-107); CREATININE 0.8 mg/dL (0.6-1.3); GLUCOSE 121 mg/dL (74-106); POTASSIUM 3.4 mmol/L (3.5-5.1); SODIUM SERUM 144 mmol/L (136-145); UREA NITROGEN, BLOOD 21 mg/dL (7-18)
--- NOTE | 2018-02-20 07:32 | NUR ---
RN NOTES RECEIVED PT. PT IS STABLE AND RESTING IN BED. SITTER AT BEDSIDE. PT IS FRENCH SPEAKING ONLY AND PER [employer] PT IS ONLY A/OX1. NO S/S OF RESP DISTRESS OR SOB. NO C/O PAIN AT THIS TIME. PT TO HAVE HOSPICE EVAL R/T FAILURE TO THRIVE. IV ACCESS LOCATED ON LAC 24G, SL. SAFETY MEASURES IN PLACE, CALL LIGHT WITHIN REACH. WILL CONTINUE TO MONITOR.
[2018-02-20] MEDS: CHOLECALCIFEROL 1,000 UNIT TABLET (VIT D3) PO SCH (08:08)
[2018-02-20] MEDS: BLOOD SUGAR DIAGNOSTIC 1 EACH STRIP IN SCH ×3 (08:08→17:37)
[2018-02-20] MEDS: APIXABAN 2.5 MG TABLET PO SCH ×2 (08:08→16:04)
[2018-02-20] MEDS: FUROSEMIDE 20 MG/2 ML VIAL IV SCH (08:08)
[2018-02-20] MEDS: QUETIAPINE FUMARATE 25 MG TABLET PO SCH (08:08)
[2018-02-20] MEDS: AMIODARONE HCL 200 MG TABLET PO SCH (08:09)
[2018-02-20] MEDS: METOPROLOL SUCCINATE 50 MG TAB.SR.24H PO SCH (08:10)
[2018-02-20 09:00] VITALS: BP 128/65
[2018-02-20] MEDS ORDERED: POTASSIUM CHLORIDE 20 MEQ POWDER PACKET GT SCH (11:30)
--- NOTE | 2018-02-20 18:33 | NUR ---
RN CLOSING NOTES PT IN BED RESTING, SITTER IS AT BEDSIDE. NO S/S OF RESP DISTRESS OR SOB, HOWEVER PT CONTINUES TO HAVE PERSISTENT, NON-PRODUCTIVE COUGH. PT DOES NOT APPEAR TO BE IN PAIN AT THIS TIME. ALL PT NEEDS ANTICIPATED AND MET, SAFETY MEASURES IN PLACE, CALL LIGHT WITHIN REACH. WILL ENDORSE TO BUSINESS SERVICES VICE PRESIDENT FOR VICENTE.
--- NOTE | 2018-02-20 19:30 | NUR ---
MS RN OPENING NOTES: PATIENT IN BED, AOX1, K[place] SPEAKING, ON O2 AT 3 LPM VIA NC, BREATHING EVEN AND UNLABORED, BREATH SOUNDS CLEAR TO AUSCULTATION. PATIENT APPEARS CALM AND IN NO DISTRESS, BUT PER SANJU MILTON, PRESENT FOR TRANSLATION, PATIENT IS SPEAKING INCOHESIVELY. PROVIDED FOR COMFORT AND SAFETY. BED IN LOWEST AND LOCKED POSITION, SIDERAILS UP X 3, SITTER AT BEDSIDE. WILL CONT TO MONITOR.
[2018-02-20 20:00] VITALS: BP 149/75
[2018-02-20] MEDS: DONEPEZIL 5 MG TABLET PO SCH (22:07)
[2018-02-20] MEDS: SENNOSIDES 8.6 MG TABLET PO SCH (22:07)
[2018-02-20] MEDS: MIRTAZAPINE 15 MG TABLET PO SCH (22:07)
[2018-02-20] MEDS: CEFTRIAXONE 1 G in IV D5W 50 ML IV SCH (23:26)
--- NOTE | 2018-02-21 06:50 | NUR ---
MS RN CLOSING NOTES: PATIENT IN BED, AOX1, APPEARS CALM AND IN NO DISTRESS, WAS ABLE TO SLEEP WELL THROUGH NIGHT. ON O2 AT 3 LPM VIA NC, BREATHING EVEN AND UNLABORED. PIV OVER LAC G24 INTACT AND PATENT TO FLUSH. DUE MEDS GIVEN. PROVIDED FOR COMFORT AND SAFETY. MORNING CARE RENDERED. BED IN LOWEST AND LOCKED POSITION, SIDERAILS UP X 3, BED ALARMS ON. SITTER AT BEDSIDE. WILL ENDORSE TO AM RN FOR VICENTE.
--- NOTE | 2018-02-21 07:10 | NUR ---
MSRN OPENING NOTES. PT WITH 1:1. PT RECEIVED A&0X1, WITHOUT WOLOF, PT CALM WITHOUT OBVIOUS S/S OF DISTRESS AT THIS TIME. PT WITH O2 VIA NC AT 3LPM. PT REFUSING LUNG AUSCULTATION. PT WITH IVC AT R AC INTACT AND SALINE FLUSH PATENT, NAD AT SITE, SLEEVE REPLACED FOR PT SAFETY. PT REPOSITED. BED IN LOWEST LOCKED POSITION WITH HANDRAILSX2 AND CALL HORTA WITHIN REACH. WILL CONTINUE TO MONITOR.
[2018-02-21 07:38] LABS: CARBON DIOXIDE 35 mmol/L (21-32); CHLORIDE 105 mmol/L (98-107); CREATININE 0.8 mg/dL (0.6-1.3); GLUCOSE 119 mg/dL (74-106); SODIUM SERUM 145 mmol/L (136-145); UREA NITROGEN, BLOOD 27 mg/dL (7-18)
[2018-02-21] MEDS: FUROSEMIDE 20 MG/2 ML VIAL IV SCH (09:00)
[2018-02-21] MEDS ORDERED: predniSONE 20 MG TABLET PO SCH (09:00)
[2018-02-21] MEDS ORDERED: POTASSIUM CHLORIDE 20 MEQ TAB.PRT.SR PO SCH (09:00)
[2018-02-21] MEDS: CHOLECALCIFEROL 1,000 UNIT TABLET (VIT D3) PO SCH (09:08)
[2018-02-21] MEDS: QUETIAPINE FUMARATE 25 MG TABLET PO SCH (09:09)
[2018-02-21] MEDS: APIXABAN 2.5 MG TABLET PO SCH (09:10)
[2018-02-21] MEDS: AMIODARONE HCL 200 MG TABLET PO SCH (09:12)
[2018-02-21] MEDS: METOPROLOL SUCCINATE 50 MG TAB.SR.24H PO SCH (09:12)
[2018-02-21 09:19] VITALS: BP 143/74
[2018-02-21] MEDS ORDERED: POTASSIUM CHLORIDE 20 MEQ POWDER PACKET GT SCH (10:00)
--- NOTE | 2018-02-21 10:09 | NUR ---
MSRKevin NOTES. 0900 ROBBIE DOES HELD R/T TO MD NOTES. WILL CONFIRM WITH .
--- NOTE | 2018-02-21 15:30 | NUR ---
MSRN NOTES. PT ENDORSED TO SANJU DE JESUS AT [facility]-PT TO ROOM 4A.
--- NOTE | 2018-02-21 16:39 | NUR ---
MSRN D/C NOTES. PT PREPARED FOR D/C PER BRANCH CHIEF. PT A&0X0. PT WAS WITH 1:1. PT WITH O2 VIA NC AT 2LPM, SAO2 WNL AT 98%. PT DENIES PAIN AND IS WITHOUT S/S OF DISTRESS OR DISCOMFORT. PT IVC REMOVED AND NAD AT SITE. PT ENDORSED TO SANJU DE JESUS AT [facility]-PT TO ROOM 4A, RN AWARE OF [facility] FOLLOW UP. PT WITH ALL BELONGINGS AND DOCUMENT SIGNED BY RNX2. SO D/C PACKET PREPARED, RV AND SIGNED BY RNX2. PT TRANSPORT WITH EMT CREW. PT LEFT WITHOUT CONCERN OR COMPLAINT.
== END 2018-02-21 16:45 | DRG 177 ==
LOC: ER 18:30 → EDBD 18:30 → TELE 21:56 → MED 02-17 09:03
PROVIDERS: ADMIT Internal Medicine; ATTEND Internal Medicine
DX: J69.0 Pneumonitis due to inhalation of food and vomit (principal); G93.40 Encephalopathy, unspecified; J96.91 Respiratory failure, unspecified with hypoxia; R64 Cachexia; I50.9 Heart failure, unspecified; G30.9 Alzheimer's disease, unspecified; F02.80 Dementia in other diseases classified elsewhere, unspecified severity, without behavioral disturbance, psychotic disturbance, mood disturbance, and anxiety; I48.0 Paroxysmal atrial fibrillation; K59.00 Constipation, unspecified; R62.7 Adult failure to thrive; M19.90 Unspecified osteoarthritis, unspecified site; M81.0 Age-related osteoporosis without current pathological fracture; Z66 Do not resuscitate; Z79.899 Other long term (current) drug therapy; Z79.01 Long term (current) use of anticoagulants; E55.9 Vitamin D deficiency, unspecified; J40 Bronchitis, not specified as acute or chronic; T38.0X5A Adverse effect of glucocorticoids and synthetic analogues, initial encounter; Y92.129 Unspecified place in nursing home as the place of occurrence of the external cause; I11.0 Hypertensive heart disease with heart failure; D63.8 Anemia in other chronic diseases classified elsewhere
CPT/HCPCS: 36415; 71045-TC; 80048-TC; 80076-TC; 81000-TC; 82962-TC; 83605-TC; 83880; 84443-TC; 84484-TC; 85025-TC; 85730-TC; 87040-TC; 87081-TC; 87086-TC; 92526; 92611-TC; 93307-TC; A4606; J0692; J0696; J1815; J1940; J2543; J2920; J3370; J7030; J7040; J7060; Z7610